=== PATIENT | male | born 2000 | race Asian ===

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

== ENCOUNTER 2023-06-05 11:28 | Emergency (ER) | payer OTHER ==
[~2023-06-05] VITALS: Ht 188 cm; Wt 84.1 kg
[2023-06-05 11:30] VITALS: BP 124/68; PULSE 74; RESP 18; TEMP 98.1
[2023-06-05] MEDS ORDERED: IBUPROFEN 600 MG TABLET PO ONE (14:30)
[2023-06-05] MEDS ORDERED: IBUP-1554 PO (15:53)
== END 2023-06-05 18:46 | disposition home or self-care (01) ==
LOC: EMS 11:34
DX: S93.602A Unspecified sprain of left foot, initial encounter (principal); S90.32XA Contusion of left foot, initial encounter; F12.90 Cannabis use, unspecified, uncomplicated; X58.XXXA Exposure to other specified factors, initial encounter; Y93.67 Activity, basketball; Y92.89 Other specified places as the place of occurrence of the external cause; Y99.8 Other external cause status
CPT/HCPCS: 99283